=== PATIENT | male | born 1970 | race Caucasian/White ===

== ENCOUNTER 2017-12-08 05:20 | Inpatient (IN) | payer MEDICARE ==
[~2017-12-08] VITALS: Ht 175.3 cm; Wt 70.8 kg
[2017-12-08] VITALS (7 sets, daily range): BP systolic 113–145; BP diastolic 63–81
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
[2017-12-08] MEDS ORDERED: Cefepime HCl 1 GM in NS 55 ML IV SCH (05:45)
[2017-12-08] MEDS ORDERED: HYDROmorphone 1mg/ml Carpuject IVP ONE (05:45)
[2017-12-08] MEDS ORDERED: Vancomycin 1.5gm/D5W 250ml 250 ML IVPB ONE (05:45)
[2017-12-08 06:09] LABS: HEMATOCRIT 37.6 % (42.0-52.0); HEMOGLOBIN 12.7 G/DL (14.2-18.0); MEAN CORPUSCULAR VOLUME 100 FL (80-99); PLATELET COUNT 232 K/UL (150-450); RED BLOOD COUNT 3.78 M/UL (4.70-6.10); RED CELL DISTRIBUTION WIDTH 11.5 % (11.6-14.8)
[2017-12-08 06:14] LABS: APPEARANCE,URINE CLEAR; BILIRUBIN, URINE NEGATIVE (NEGATIVE); GLUCOSE, URINE (UA) NEGATIVE (NEGATIVE); KETONES,URINE 3+ (NEGATIVE); LEUKOCYTE ESTERASE ,URINE 1+ (NEGATIVE); NITRITE,URINE NEGATIVE (NEGATIVE); PH,URINE 8 (4.5-8.0); PROTEIN,URINE 2+ (NEGATIVE); UROBILINOGEN,URINE 1 MG/DL (0.0-1.0)
[2017-12-08 06:20] LABS: WHITE BLOOD COUNT 31.4 K/UL (4.8-10.8)
[2017-12-08 06:23] LABS: ANION GAP 7 mmol/L (5-15); BLOOD UREA NITROGEN 21 mg/dL (7-18); CALCIUM 8.4 MG/DL (8.5-10.1); CARBON DIOXIDE 27 MMOL/L (21-32); CHLORIDE 98 MMOL/L (98-107); CREATININE 1.1 MG/DL (0.55-1.30); POTASSIUM 4.6 MMOL/L (3.5-5.1); SODIUM 132 MMOL/L (136-145)
[2017-12-08 06:27] LABS: ALANINE AMINOTRANSFERASE 66 U/L (12-78); ALBUMIN 3.2 G/DL (3.4-5.0); ALBUMIN/GLOBULIN RATIO 0.9 (1.0-2.7); ALKALINE PHOSPHATASE 76 U/L (46-116); ASPARTATE AMINO TRANSFERASE 128 U/L (15-37); BILIRUBIN,TOTAL 0.7 MG/DL (0.2-1.0)
[2017-12-08 06:30] LABS: COLOR,URINE YELLOW
[2017-12-08] MEDS ORDERED: Acetaminophen 500mg (ES) tab ORAL ONE ×2 (07:00→07:15)
--- NOTE | 2017-12-08 09:35 | Diagnostic Imaging Report ---
Indication: pain. Left hand pain Findings: 3 views of the left hand were obtained. Normal alignment is demonstrated. No acute fractures, erosions, or periosteal reaction are seen. Fairly marked soft tissue swelling is present. Impression: No acute fracture.
[2017-12-08] MEDS ORDERED: Miralax 17gm pkt ORAL PRN (12:00)
[2017-12-08] MEDS ORDERED: Nitroglycerin Subl 0.4mg tab SL PRN (12:00)
[2017-12-08] MEDS ORDERED: Albuterol/Ipratropium 3ml neb HHN PRN (12:00)
[2017-12-08] MEDS ORDERED: Morphine Sulfate 4mg/ml Inj IVP PRN (12:00)
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
[2017-12-08] MEDS: Vancomycin 1250mg/D5W 250ml IVPB SCH (17:24)
[2017-12-08] MEDS: Morphine Sulfate 4mg/ml Inj IVP PRN ×2 (17:46→21:56)
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
--- NOTE | 2017-12-08 19:59 | Consultation ---
Consult Note Consult Note [id number] Panda Almaraz MD Dec 08, 2017 19:59
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
[2017-12-08] MEDS ORDERED: Cefepime HCl 2 GM in D5W 110 ML IV SCH (21:00)
[2017-12-08] MEDS: Depakote ER 500mg tab ORAL SCH (21:55)
[2017-12-08] MEDS: Heparin 5000 units/ml inj SUBQ SCH (21:59)
[2017-12-09] VITALS (12 sets, daily range): BP systolic 105–138; BP diastolic 53–85
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
[2017-12-09] MEDS ORDERED: Vancomycin 1 GM in D5W 275 ML IV SCH (00:30)
[2017-12-09] MEDS: Vancomycin 1250mg/D5W 250ml IVPB SCH ×2 (05:02→18:11)
[2017-12-09] MEDS: Clindamycin 150mg cap ORAL SCH ×4 (05:24→18:11)
[2017-12-09] MEDS: Piperacillin/Tazobactam 3.375 GM in NS 110 ML IVPB SCH ×3 (06:00→21:15)
[2017-12-09 07:00] LABS: HEMATOCRIT 38.5 % (42.0-52.0); HEMOGLOBIN 13.4 G/DL (14.2-18.0); MEAN CORPUSCULAR VOLUME 99 FL (80-99); PLATELET COUNT 256 K/UL (150-450); RED BLOOD COUNT 3.88 M/UL (4.70-6.10); RED CELL DISTRIBUTION WIDTH 11.7 % (11.6-14.8)
[2017-12-09 07:09] LABS: WHITE BLOOD COUNT 30.6 K/UL (4.8-10.8)
[2017-12-09 07:14] LABS: ALANINE AMINOTRANSFERASE 59 U/L (12-78); ALBUMIN 2.7 G/DL (3.4-5.0); ALBUMIN/GLOBULIN RATIO 0.6 (1.0-2.7); ALKALINE PHOSPHATASE 87 U/L (46-116); ANION GAP 11 mmol/L (5-15); ASPARTATE AMINO TRANSFERASE 65 U/L (15-37); BILIRUBIN,TOTAL 0.7 MG/DL (0.2-1.0); BLOOD UREA NITROGEN 16 mg/dL (7-18); CALCIUM 8.9 MG/DL (8.5-10.1); CARBON DIOXIDE 26 MMOL/L (21-32); CHLORIDE 101 MMOL/L (98-107); POTASSIUM 3.9 MMOL/L (3.5-5.1); SODIUM 137 MMOL/L (136-145)
[2017-12-09] MEDS: Morphine Sulfate 4mg/ml Inj IVP PRN ×2 (08:43→14:10)
[2017-12-09] MEDS: Heparin 5000 units/ml inj SUBQ SCH ×2 (08:49→21:00)
--- NOTE | 2017-12-09 09:50 | Infectious Diseases Prog Note ---
Assessment/Plan Assessment/Plan ASSESSMENT: The patient is a 47-year-old male with Fever Left hand cellulitis / Abscess , possible osteomyelitis Wnd Cx :GAStrp and strp # 2 Lt hand swollen , no sig improvment comparered to yesterday SP trauma Bacteremia : GPC Leukocytosis. History of hepatitis C , SP Rx PLAN: Continue the patient on vancomycin Zosyn and clindamycin day # 2 Monitor CBC. Monitor BMP. Monitor cultures (blood, wound). Surgical r following , pt need for I and D. ( DW PCP and left a message w office of Surg,for a call back and discuss the case ) MRI of the left hand to rule out osteomyelitis/evaluation of abscess. Subjective Allergies: Coded Allergies: No Known Allergies (Unverified , 12/08/17) Subjective leukocytosis Objective Vital Signs Last 24 Hour Vital Signs Date Time Temp Pulse Resp B/P (MAP) Pulse Ox O2 Delivery O2 Flow Rate FiO2 12/09/17 08:43 97.7 12/09/17 08:11 97.7 111 18 138/80 98 97.7 12/09/17 04:00 99.5 90 17 105/53 94 99.5 12/09/17 02:56 100.1 12/09/17 01:57 100.6 12/09/17 00:00 100.6 107 17 115/69 100.6 12/08/17 22:26 99.1 12/08/17 21:56 99.1 12/08/17 20:00 99.1 96 17 116/71 94 99.1 12/08/17 19:26 98 Room Air 21 12/08/17 17:46 97.6 12/08/17 15:59 97.6 89 21 113/63 100 97.6 12/08/17 13:45 97.5 12/08/17 12:00 97.5 100 21 145/81 96 97.5 12/08/17 10:12 99.3 97 13 113/75 95 Room Air 99.3 Height (Feet): 5 Height (Inches): 9.00 Weight (Pounds): 156 HEENT: mucous membranes moist Respiratory/Chest: no respiratory distress Cardiovascular: regular rhythm Abdomen: no mass Musculoskeletal: other - Lt hand swollen , no sig improvment comparered to yesterday Microbiology Date/Time Source Procedure Growth Status 12/08/17 05:45 Other(Specify in comment) Gram Stain - Final Resulted 12/08/17 05:45 Wound Culture - Preliminary Streptococcus Group A Strep Species, Alpha Hemolytic Resulted Laboratory Tests Test 12/09/17 05:40 White Blood Count 30.6 K/UL (4.8-10.8) *H Red Blood Count 3.88 M/UL (4.70-6.10) L Hemoglobin 13.4 G/DL (14.2-18.0) L Hematocrit 38.5 % (42.0-52.0) L Mean Corpuscular Volume 99 FL (80-99) Mean Corpuscular Hemoglobin 34.5 PG (27.0-31.0) H Mean Corpuscular Hemoglobin Concent 34.7 G/DL (32.0-36.0) Red Cell Distribution Width 11.7 % (11.6-14.8) Platelet Count 256 K/UL (150-450) Mean Platelet Volume 7.6 FL (6.5-10.1) Neutrophils (%) (Auto) % (45.0-75.0) Lymphocytes (%) (Auto) % (20.0-45.0) Monocytes (%) (Auto) % (1.0-10.0) Eosinophils (%) (Auto) % (0.0-3.0) Basophils (%) (Auto) % (0.0-2.0) Differential Total Cells Counted 100 Neutrophils % (Manual) 89 % (45-75) H Lymphocytes % (Manual) 2 % (20-45) L Monocytes % (Manual) 7 % (1-10) Eosinophils % (Manual) 0 % (0-3) Basophils % (Manual) 0 % (0-2) Band Neutrophils 2 % (0-8) Platelet Estimate Adequate Platelet Morphology Normal Red Blood Cell Morphology Normal Sodium Level 137 MMOL/L (136-145) Potassium Level 3.9 MMOL/L (3.5-5.1) Chloride Level 101 MMOL/L (98-107) Carbon Dioxide Level 26 MMOL/L (21-32) Anion Gap 11 mmol/L (5-15) Blood Urea Nitrogen 16 mg/dL (7-18) Creatinine 1.0 MG/DL (0.55-1.30) Estimat Glomerular Filtration Rate > 60 mL/min (>60) Glucose Level 95 MG/DL (74-106) Calcium Level 8.9 MG/DL (8.5-10.1) Total Bilirubin 0.7 MG/DL (0.2-1.0) Aspartate Amino Transf (AST/SGOT) 65 U/L (15-37) H Alanine Aminotransferase (ALT/SGPT) 59 U/L (12-78) Alkaline Phosphatase 87 U/L (46-116) Total Protein 7.0 G/DL (6.4-8.2) Albumin 2.7 G/DL (3.4-5.0) L Globulin 4.3 g/dL Albumin/Globulin Ratio 0.6 (1.0-2.7) L Current Medications Medications (Trade) Dose Ordered Sig/Cheryle Route PRN Reason Start Time Stop Time Status Last Admin Dose Admin Acetaminophen (Tylenol) 650 mg Q4H PRN ORAL fever>100.5 12/08/17 12:00 01/07/18 11:59 12/09/17 01:57 Albuterol/ Ipratropium (Albuterol/ Ipratropium) 3 ml Q4H PRN HHN Shortness of Breath 12/08/17 12:00 12/13/17 11:59 Clindamycin HCl (Cleocin) 600 mg EVERY 6 HOURS ORAL 12/09/17 00:00 12/16/17 00:00 12/09/17 05:24 Dextrose (Dextrose 50%) 25 ml STAT PRN IV Hypoglycemia 12/08/17 12:00 01/07/18 11:59 Dextrose (Dextrose 50%) 50 ml STAT PRN IV Hypoglycemia 12/08/17 12:00 01/07/18 11:59 Divalproex Sodium (Depakote ER) 500 mg BEDTIME ORAL 12/08/17 21:00 01/07/18 20:59 12/08/17 21:55 Heparin Sodium (Porcine) (Heparin 5000 units/ml) 5,000 units EVERY 12 HOURS SUBQ 12/08/17 21:00 01/07/18 20:59 12/09/17 08:49 Morphine Sulfate (Morphine Sulfate) 2 mg Q3H PRN IVP Moderate Pain (Pain Scale 4-6) 12/08/17 15:00 12/15/17 14:59 12/09/17 08:43 Nitroglycerin (Ntg) 0.4 mg Q5M PRN SL Prn Chest Pain 12/08/17 12:00 01/07/18 11:59 Ondansetron HCl (Zofran) 4 mg Q6H PRN IVP Nausea & Vomiting 12/08/17 12:00 01/07/18 11:59 Piperacillin Sod/ Tazobactam Sod 3.375 gm/Sodium Chloride 110 ml @ 27.5 mls/hr EVERY 8 HOURS IVPB 12/09/17 06:00 12/14/17 05:59 Polyethylene Glycol (Miralax) 17 gm DAILYPRN PRN ORAL Constipation 12/08/17 12:00 01/07/18 11:59 Temazepam (Restoril) 15 mg HSPRN PRN ORAL Insomnia 12/08/17 21:00 12/15/17 20:59 Vancomycin HCl/ Dextrose 250 ml @ 166.667 mls/hr Q12H IVPB 12/08/17 18:00 12/13/17 17:59 12/09/17 05:02 Panda Almaraz MD Dec 09, 2017 09:50
--- NOTE | 2017-12-09 12:42 | Diagnostic Imaging Report ---
APPROVED REPORT CPT Code: 95780 Present Symptoms Comments: R/O DVT BILATERAL: Imaging reveals a patent deep venous system bilaterally. There is no evidence of thrombus within the femoral, popliteal or tibial segments. The greater saphenous veins are also within normal limits. Doppler indicates normal spontaneous flow within these segments.
--- NOTE | 2017-12-09 14:32 | Diagnostic Imaging Report ---
Indication: Left hand cellulitis, wound, injury, positive for gram-negative cocci infection Technique: Axial T1, axial T2 fat-saturated, coronal T1, coronal STIR, sagittal T1, sagittal STIR, pre and post contrast axial and coronal T1 fat saturated images of the left hand Comparison: Reference made to plain radiograph dated 12/08/2017 Findings: A marker elliott the site of an ulcer which is dorsal to the distal shaft of the second metacarpal. There is extensive edema of the dorsum of the hand diffusely. There is extensive contrast enhancement. However, there are large areas of nonenhancement involving both the superficial fat as well as extending under and around the extensor digitorum tendons, appearing as fluid collections on the T2 and STIR images. This is centered at the site of ulceration and reaches the skin there, and the largest area of involvement is over the second and third metacarpals, but extends cephalad to the wrist, where this extends across the entirety of the posterior hand/wrist. More cephalad, it extends well into the second digit, terminating at the level of the first proximal interphalangeal joint. Although very complex in shape, most of this appears to be interconnected, although there are likely at least some discrete loculations. Due to the complex shape, measurements are difficult to provide. At its widest point, this measures approximately 7 cm transverse. Deep to the ulcer measures approximately 1.9 cm thick, and extends over a length of at least 13 cm. The bone marrow signal in all of the bones is normal. No abnormal joint effusion. No gross tendon signal abnormality is demonstrated. Impression: Findings consistent with complex abscess of the dorsum of the hand, as described above. There is also extensive surrounding soft tissue cellulitis. No evidence of osteomyelitis Findings discussed by phone with Dr. Ng at the time of interpretation
--- NOTE | 2017-12-09 18:44 | General Progress Note ---
Assessment/Plan Assessment/Plan bipolar d/o depression depakote 500mg qhs Subjective Date patient seen: Dec 09, 2017 Neurologic/Psychiatric: Reports: anxiety, emotional problems Allergies: Coded Allergies: No Known Allergies (Unverified , 12/08/17) Objective Last 24 Hour Vital Signs Date Time Temp Pulse Resp B/P (MAP) Pulse Ox O2 Delivery O2 Flow Rate FiO2 12/09/17 15:37 98.1 103 18 137/83 99 98.1 12/09/17 14:40 98.1 12/09/17 14:10 99.0 12/09/17 11:44 99.0 102 18 121/74 99 99.0 12/09/17 08:43 97.7 12/09/17 08:11 97.7 111 18 138/80 98 97.7 12/09/17 07:30 114 16 Room Air 21 12/09/17 07:30 98 Room Air 21 12/09/17 04:00 99.5 90 17 105/53 94 99.5 12/09/17 02:56 100.1 12/09/17 01:57 100.6 12/09/17 00:00 100.6 107 17 115/69 100.6 12/08/17 21:56 99.1 12/08/17 20:00 99.1 96 17 116/71 94 99.1 12/08/17 19:26 98 Room Air 21 Intake and Output 12/08/17 12/09/17 19:00 07:00 Intake Total 2580 ml 410 ml Balance 2580 ml 410 ml Intake Oral 480 ml 300 ml IV Total 2100 ml 110 ml # Voids 2 1 Laboratory Tests 12/09/17 05:40: White Blood Count 30.6*H, Red Blood Count 3.88L, Hemoglobin 13.4L, Hematocrit 38.5L, Mean Corpuscular Volume 99, Mean Corpuscular Hemoglobin 34.5H, Mean Corpuscular Hemoglobin Concent 34.7, Red Cell Distribution Width 11.7, Platelet Count 256, Mean Platelet Volume 7.6, Neutrophils (%) (Auto) , Lymphocytes (%) ( Auto) , Monocytes (%) (Auto) , Eosinophils (%) (Auto) , Basophils (%) (Auto) , Differential Total Cells Counted 100, Neutrophils % (Manual) 89H, Lymphocytes % (Manual) 2L, Monocytes % (Manual) 7, Eosinophils % (Manual) 0, Basophils % ( Manual) 0, Band Neutrophils 2, Platelet Estimate Adequate, Platelet Morphology Normal, Red Blood Cell Morphology Normal, Sodium Level 137, Potassium Level 3.9 , Chloride Level 101, Carbon Dioxide Level 26, Anion Gap 11, Blood Urea Nitrogen 16, Creatinine 1.0, Estimat Glomerular Filtration Rate > 60, Glucose Level 95, Calcium Level 8.9, Total Bilirubin 0.7, Aspartate Amino Transf (AST/ SGOT) 65H, Alanine Aminotransferase (ALT/SGPT) 59, Alkaline Phosphatase 87, Total Protein 7.0, Albumin 2.7L, Globulin 4.3, Albumin/Globulin Ratio 0.6L Height (Feet): 5 Height (Inches): 9.00 Weight (Pounds): 156 Neurologic: alert, oriented x 3, responsive Hema Michaels M.D. Dec 09, 2017 18:44
--- NOTE | 2017-12-09 19:55 | Pulmonology Progress Note ---
Assessment/Plan Problems: (1) Cellulitis (2) Abscess of left hand including fingers Assessment/Plan continue abx d/w ID check cbc in am symptomatic treatment Subjective ROS Limited/Unobtainable: No Constitutional: Reports: no symptoms HEENT: Repors: no symptoms Respiratory: Reports: no symptoms Allergies: Coded Allergies: No Known Allergies (Unverified , 12/08/17) Objective Last 24 Hour Vital Signs Date Time Temp Pulse Resp B/P (MAP) Pulse Ox O2 Delivery O2 Flow Rate FiO2 12/09/17 15:37 98.1 103 18 137/83 99 98.1 12/09/17 14:40 98.1 12/09/17 14:10 99.0 12/09/17 11:44 99.0 102 18 121/74 99 99.0 12/09/17 08:43 97.7 12/09/17 08:11 97.7 111 18 138/80 98 97.7 12/09/17 07:30 114 16 Room Air 21 12/09/17 07:30 98 Room Air 21 12/09/17 04:00 99.5 90 17 105/53 94 99.5 12/09/17 02:56 100.1 12/09/17 01:57 100.6 12/09/17 00:00 100.6 107 17 115/69 100.6 12/08/17 21:56 99.1 12/08/17 20:00 99.1 96 17 116/71 94 99.1 Intake and Output 12/08/17 12/09/17 19:00 07:00 Intake Total 2580 ml 410 ml Balance 2580 ml 410 ml Intake Oral 480 ml 300 ml IV Total 2100 ml 110 ml # Voids 2 1 General Appearance: WD/WN HEENT: normocephalic, atraumatic Respiratory/Chest: chest wall non-tender, lungs clear Cardiovascular: normal peripheral pulses, normal rate Abdomen: normal bowel sounds, soft, non tender Extremities: other - less swelling Microbiology Date/Time Source Procedure Growth Status 12/08/17 05:45 Blood Blood Culture - Preliminary Resulted 12/08/17 05:30 Blood Blood Culture - Preliminary Resulted 12/08/17 05:45 Other(Specify in comment) Gram Stain - Final Resulted 12/08/17 05:45 Wound Culture - Preliminary Streptococcus Group A Strep Species, Alpha Hemolytic Resulted Laboratory Tests 12/09/17 05:40: White Blood Count 30.6*H, Red Blood Count 3.88L, Hemoglobin 13.4L, Hematocrit 38.5L, Mean Corpuscular Volume 99, Mean Corpuscular Hemoglobin 34.5H, Mean Corpuscular Hemoglobin Concent 34.7, Red Cell Distribution Width 11.7, Platelet Count 256, Mean Platelet Volume 7.6, Neutrophils (%) (Auto) , Lymphocytes (%) ( Auto) , Monocytes (%) (Auto) , Eosinophils (%) (Auto) , Basophils (%) (Auto) , Differential Total Cells Counted 100, Neutrophils % (Manual) 89H, Lymphocytes % (Manual) 2L, Monocytes % (Manual) 7, Eosinophils % (Manual) 0, Basophils % ( Manual) 0, Band Neutrophils 2, Platelet Estimate Adequate, Platelet Morphology Normal, Red Blood Cell Morphology Normal, Sodium Level 137, Potassium Level 3.9 , Chloride Level 101, Carbon Dioxide Level 26, Anion Gap 11, Blood Urea Nitrogen 16, Creatinine 1.0, Estimat Glomerular Filtration Rate > 60, Glucose Level 95, Calcium Level 8.9, Total Bilirubin 0.7, Aspartate Amino Transf (AST/ SGOT) 65H, Alanine Aminotransferase (ALT/SGPT) 59, Alkaline Phosphatase 87, Total Protein 7.0, Albumin 2.7L, Globulin 4.3, Albumin/Globulin Ratio 0.6L Current Medications Medications (Trade) Dose Ordered Sig/Cheryle Route PRN Reason Start Time Stop Time Status Last Admin Dose Admin Acetaminophen (Tylenol) 650 mg Q4H PRN ORAL fever>100.5 12/08/17 12:00 01/07/18 11:59 12/09/17 01:57 Albuterol/ Ipratropium (Albuterol/ Ipratropium) 3 ml Q4H PRN HHN Shortness of Breath 12/08/17 12:00 12/13/17 11:59 Clindamycin HCl (Cleocin) 600 mg EVERY 6 HOURS ORAL 12/09/17 00:00 12/16/17 00:00 12/09/17 18:11 Dextrose (Dextrose 50%) 25 ml STAT PRN IV Hypoglycemia 12/08/17 12:00 01/07/18 11:59 Dextrose (Dextrose 50%) 50 ml STAT PRN IV Hypoglycemia 12/08/17 12:00 01/07/18 11:59 Divalproex Sodium (Depakote ER) 500 mg BEDTIME ORAL 12/08/17 21:00 01/07/18 20:59 12/08/17 21:55 Heparin Sodium (Porcine) (Heparin 5000 units/ml) 5,000 units EVERY 12 HOURS SUBQ 12/08/17 21:00 01/07/18 20:59 12/09/17 08:49 Morphine Sulfate (Morphine Sulfate) 2 mg Q3H PRN IVP Moderate Pain (Pain Scale 4-6) 12/08/17 15:00 12/15/17 14:59 12/09/17 14:10 Nitroglycerin (Ntg) 0.4 mg Q5M PRN SL Prn Chest Pain 12/08/17 12:00 01/07/18 11:59 Ondansetron HCl (Zofran) 4 mg Q6H PRN IVP Nausea & Vomiting 12/08/17 12:00 01/07/18 11:59 Piperacillin Sod/ Tazobactam Sod 3.375 gm/Sodium Chloride 110 ml @ 27.5 mls/hr EVERY 8 HOURS IVPB 12/09/17 06:00 12/14/17 05:59 12/09/17 14:08 Polyethylene Glycol (Miralax) 17 gm DAILYPRN PRN ORAL Constipation 12/08/17 12:00 01/07/18 11:59 Temazepam (Restoril) 15 mg HSPRN PRN ORAL Insomnia 12/08/17 21:00 12/15/17 20:59 Vancomycin HCl/ Dextrose 250 ml @ 166.667 mls/hr Q12H IVPB 12/08/17 18:00 12/13/17 17:59 12/09/17 18:11 Med Ng MD Dec 09, 2017 19:55
[2017-12-09] MEDS: Depakote ER 500mg tab ORAL SCH (21:00)
[2017-12-09] MEDS: D5 1/2NS 1,000 ML IV SCH (21:15)
[2017-12-09] MEDS ORDERED: Bacitracin Oint 15gm Tube TOPIC ONE (21:47)
[2017-12-09] MEDS ORDERED: Lidocaine 1% Plain 30 ml INJ ONE ×2 (21:47→22:43)
[2017-12-09] MEDS ORDERED: Bacitracin 50000 Units Vial ONE (21:48)
[2017-12-09] MEDS ORDERED: Bupivacaine 0.25% Inj 30ml INJ ONE ×2 (21:48→22:43)
[2017-12-09] MEDS ORDERED: Hydrogen Peroxide 473ml Bottle TOPIC ONE (21:48)
[2017-12-09] MEDS ORDERED: Propofol 200mg/20ml IV ONE (21:51)
[2017-12-09] MEDS ORDERED: [UNRECOGNIZED DRUG - OTHER] MISC ONE (21:53)
[2017-12-09] MEDS ORDERED: Ropivacaine 5mg/ml Vial 30ml INJ ONE (21:53)
[2017-12-09] MEDS ORDERED: NS Irrig 1000ml ONE (22:00)
[2017-12-09] MEDS ORDERED: LR 1000ml ONE ×2 (22:00)
[2017-12-09] MEDS ORDERED: Midazolam 2mg/2ml Inj ONE (22:00)
[2017-12-09] MEDS ORDERED: Sterile Water Irrig 1000ml IRRIG ONE (22:00)
--- NOTE | 2017-12-09 22:11 | Anethesia Preoperative Eval ---
Anesthesia Pre-op PMH/ROS General Date of Evaluation: Dec 09, 2017 Time of Evaluation: 10:11 Anesthesiologist: Laura ASA Score: ASA 3 - Emergency Mallampati Score Class I : Soft palate, uvula, fauces, pillars visible Class II: Soft palate, uvula, fauces visible Class III: Soft palate, base of uvula visible Class IV: Only hard plate visible Mallampati Classification: Class II Surgeon: Vince Diagnosis: L Hand Cellulitis Surgical Procedure: I and D L Hand Anesthesia History: none Family History: no anesthesia problems Allergies: Coded Allergies: No Known Allergies (Unverified , 12/08/17) Medications: see eMAR Past Medical History Cardiovascular: Reports: HTN Neurologic/Psychiatric: Reports: other - ADHD Hematology/Immune: Reports: anemia, other - 40k WBC Anesthesia Pre-op Phys. Exam Physician Exam Last Vital Signs Date Time Temp Pulse Resp B/P (MAP) Pulse Ox O2 Delivery O2 Flow Rate FiO2 12/09/17 20:00 98.6 16 16 126/73 97 98.6 12/09/17 07:30 Room Air 21 Constitutional: NAD Neurologic: CN 2-12 intact Cardiovascular: RRR Respiratory: CTA Gastrointestinal: S/NT/ND Airway Exam Mallampati Classification ASA 3E Mallampati Score: Class II MO: full ROM: full Teeth: missing, intact Anesthesia Pre-op A/P Labs Hematology Test 12/09/17 05:40 White Blood Count 30.6 K/UL (4.8-10.8) *H Red Blood Count 3.88 M/UL (4.70-6.10) L Hemoglobin 13.4 G/DL (14.2-18.0) L Hematocrit 38.5 % (42.0-52.0) L Mean Corpuscular Volume 99 FL (80-99) Mean Corpuscular Hemoglobin 34.5 PG (27.0-31.0) H Mean Corpuscular Hemoglobin Concent 34.7 G/DL (32.0-36.0) Red Cell Distribution Width 11.7 % (11.6-14.8) Platelet Count 256 K/UL (150-450) Mean Platelet Volume 7.6 FL (6.5-10.1) Neutrophils (%) (Auto) % (45.0-75.0) Lymphocytes (%) (Auto) % (20.0-45.0) Monocytes (%) (Auto) % (1.0-10.0) Eosinophils (%) (Auto) % (0.0-3.0) Basophils (%) (Auto) % (0.0-2.0) Differential Total Cells Counted 100 Neutrophils % (Manual) 89 % (45-75) H Lymphocytes % (Manual) 2 % (20-45) L Monocytes % (Manual) 7 % (1-10) Eosinophils % (Manual) 0 % (0-3) Basophils % (Manual) 0 % (0-2) Band Neutrophils 2 % (0-8) Platelet Estimate Adequate Platelet Morphology Normal Red Blood Cell Morphology Normal Chemistry Test 12/09/17 05:40 Sodium Level 137 MMOL/L (136-145) Potassium Level 3.9 MMOL/L (3.5-5.1) Chloride Level 101 MMOL/L (98-107) Carbon Dioxide Level 26 MMOL/L (21-32) Anion Gap 11 mmol/L (5-15) Blood Urea Nitrogen 16 mg/dL (7-18) Creatinine 1.0 MG/DL (0.55-1.30) Estimat Glomerular Filtration Rate > 60 mL/min (>60) Glucose Level 95 MG/DL (74-106) Calcium Level 8.9 MG/DL (8.5-10.1) Total Bilirubin 0.7 MG/DL (0.2-1.0) Aspartate Amino Transf (AST/SGOT) 65 U/L (15-37) H Alanine Aminotransferase (ALT/SGPT) 59 U/L (12-78) Alkaline Phosphatase 87 U/L (46-116) Total Protein 7.0 G/DL (6.4-8.2) Albumin 2.7 G/DL (3.4-5.0) L Globulin 4.3 g/dL Albumin/Globulin Ratio 0.6 (1.0-2.7) L Risk Assessment & Plan Assessment: ASA 3E Plan: Supraclavicular Block, Sedation Status Change Before Surgery: Patrice Weiss MD Dec 09, 2017 22:11
--- NOTE | 2017-12-09 22:12 | Immediate Post-Op Evaluation ---
Immediate Post-Op Evalulation Immediate Post-Op Evalulation Procedure: 1 and D L Hand Date of Evaluation: Dec 09, 2017 Time of Evaluation: 23:33 IV Fluids: 300 LR Blood Products: 0 Estimated Blood Loss: 10 Urinary Output: 0 Blood Pressure Systolic: 131 Blood Pressure Diastolic: 75 Pulse Rate: 111 Respiratory Rate: 16 O2 Sat by Pulse Oximetry: 100 Temperature (Fahrenheit): 99.5 Pain Score (1-10): 2 Nausea: No Vomiting: No Complications 0 Patient Status: awake, reacts, patent, none Hydration Status: adequate Drug: Zosyn 3.375 Grams IV Time Given: 22:34 Patrice Sanchez MD Dec 09, 2017 22:12
[2017-12-09] MEDS ORDERED: LR 1000ml 1,000 ML IVLG SCH (22:16)
--- NOTE | 2017-12-09 22:27 | General Progress Note ---
Progress Note Progress Note Plastic Surgery Progress Note Patient was seen this evening and results of MRI of the Left hand was reviewed. Patients notes persistant pain in the left hand. Has not improved and continues to be swollen. Has not worsened either. Review of the MRI results suggests a dorasal hand abscess. PE: Left hand has a larger area of skin necrosis. Murky fluid draining from the proximal doral blister and scab areas. Hand swelling and erythema unchanged from last night. A/P: Left hand cellulitis and abscess per MRI. Discussed with patient the results of the MRI and the surgical plan to explore and debride his left hand. Will also drain and wash out abscess. Will obtain cultures. He understands this is neceesary and that his cellulitis and hand infection will not improve unless the abscess is drained, the wounds debrided and washed out. Will make arrangements. JAY JACOBO M.D. Dec 09, 2017 22:27
--- NOTE | 2017-12-09 22:28 | Pre-Procedure Note/Attestation ---
Pre-Procedure Note/Attestation Complete Prior to Procedure Planned Procedure: left Procedure Narrative: Left hand debridement and Abscess incision and drainage. Indications for Procedure Pre-Operative Diagnosis: Left hand cellulitis and abscess Attestation I attest that I discussed the nature of the procedure; its benefits; risks and complications; and alternatives (and the risks and benefits of such alternatives ), prior to the procedure, with the patient (or the patient's legal dealer compliance representative). I attest that, if there was a reasonable possibility of needing a blood transfusion, the patient (or the patient's legal dealer compliance representative) was given the [facility] standardized written summary, pursuant to the [place] Blood Safety Act ([place] Health and Safety Code # 1645, as amended). I attest that I re-evaluated the patient just prior to the surgery and that there has been no change in the patient's H&P, except as documented below: JAY JACOBO M.D. Dec 09, 2017 22:28
[2017-12-09] MEDS ORDERED: HYDROcodone/Acetamin 7.5/325 tab ORAL PRN (22:30)
[2017-12-09] MEDS ORDERED: oxyCODONE HCL/Acetaminophen 5/325mg ORAL PRN (22:30)
[2017-12-09] MEDS ORDERED: Labetalol 5mg/ml 20ml vial IV PRN (22:30)
[2017-12-09] MEDS ORDERED: Ketorolac 30mg Inj IV PRN ×2 (22:30)
[2017-12-09] MEDS ORDERED: DiphenhydrAMINE 50mg/ml Inj IVP PRN (22:30)
[2017-12-09] MEDS ORDERED: fentaNYL 100 mcg/2 mL IV PRN (22:30)
[2017-12-09] MEDS ORDERED: Midazolam 2mg/2ml Inj IVP PRN (22:30)
[2017-12-09] MEDS ORDERED: Atropine Inj 1mg/10ml Syr IV PRN (22:30)
[2017-12-09] MEDS ORDERED: LORazepam Inj 2mg/ml 1ml IV PRN (22:30)
[2017-12-09] MEDS ORDERED: Norco 5mg/325mg tab ORAL PRN ×2 (22:30→23:30)
[2017-12-09] MEDS ORDERED: Bacitracin 50000 Units Vial IRRIG ONE (22:43)
[2017-12-09] MEDS ORDERED: Betadine 4oz Bottle TOPIC ONE (22:43)
--- NOTE | 2017-12-09 23:16 | Brief Operative Note ---
Immediate Post Operative Note Operative Note Pre-op Diagnosis: Left hand cellulitis and abscess Procedure: Left hand debridement, incision and drainage of abscess and washout Post-op Diagnosis: same as pre-op Post-op Diagnosis: same as pre-op Findings: consistent w/pre-op dx studies Surgeon: Jay Jacobo Bottle Packer: None Additional Surgeons: None Anesthesiologist: Laura Anesthesia: regional Specimen: yes - Abscess cultures Complications: none Condition: stable Fluids: see anesthesia record Estimated Blood Loss: minimal Drains: joni Packing: Wet to dry Implant(s) used?: No JAY JACOBO M.D. Dec 09, 2017 23:16
[2017-12-10] VITALS (7 sets, daily range): BP systolic 112–142; BP diastolic 68–78
[2017-12-10] MEDS: Clindamycin 150mg cap ORAL SCH ×4 (00:59→17:54)
[2017-12-10] MEDS: Vancomycin 1250mg/D5W 250ml IVPB SCH ×3 (05:25→20:46)
[2017-12-10 05:57] LABS: HEMATOCRIT 36.2 % (42.0-52.0); HEMOGLOBIN 12.8 G/DL (14.2-18.0); MEAN CORPUSCULAR VOLUME 99 FL (80-99); PLATELET COUNT 246 K/UL (150-450); RED BLOOD COUNT 3.64 M/UL (4.70-6.10); RED CELL DISTRIBUTION WIDTH 12.1 % (11.6-14.8)
[2017-12-10 06:11] LABS: ALANINE AMINOTRANSFERASE 54 U/L (12-78); ALBUMIN 2.4 G/DL (3.4-5.0); ALBUMIN/GLOBULIN RATIO 0.5 (1.0-2.7); ALKALINE PHOSPHATASE 82 U/L (46-116); ANION GAP 9 mmol/L (5-15); ASPARTATE AMINO TRANSFERASE 43 U/L (15-37); BILIRUBIN,TOTAL 0.5 MG/DL (0.2-1.0); BLOOD UREA NITROGEN 15 mg/dL (7-18); CALCIUM 8.7 MG/DL (8.5-10.1); CARBON DIOXIDE 26 MMOL/L (21-32); CHLORIDE 102 MMOL/L (98-107); CREATININE 0.9 MG/DL (0.55-1.30); POTASSIUM 4.2 MMOL/L (3.5-5.1); SODIUM 137 MMOL/L (136-145)
[2017-12-10 06:12] LABS: WHITE BLOOD COUNT 24.8 K/UL (4.8-10.8)
[2017-12-10 06:20] LABS: PHOSPHORUS 3.3 MG/DL (2.5-4.9)
[2017-12-10] MEDS: D5 1/2NS 1,000 ML IV SCH (06:45)
[2017-12-10] MEDS: Piperacillin/Tazobactam 3.375 GM in NS 110 ML IVPB SCH ×3 (07:06→22:13)
--- NOTE | 2017-12-10 08:40 | 48 Hour Post Anesthesia Eval ---
Post Anesthesia Evaluation Procedure: 1 and D L Hand Date of Evaluation: Dec 10, 2017 Time of Evaluation: 08:20 Blood Pressure Systolic: 122 0: 68 Pulse Rate: 85 Respiratory Rate: 20 Temperature (Fahrenheit): 98.1 O2 Sat by Pulse Oximetry: 95 Airway: patent Nausea: No Vomiting: No Pain Intensity: 0 Hydration Status: adequate Cardiopulmonary Status: at baseline Mental Status/LOC: patient returned to baseline Post-Anesthesia Complications: 0 Follow-up care needed: N/A - further care as per primary team LOUIE KAHN M.D. Dec 10, 2017 08:40
[2017-12-10] MEDS: Docusate 100mg cap ORAL SCH ×2 (08:46→17:53)
[2017-12-10] MEDS: Heparin 5000 units/ml inj SUBQ SCH ×2 (08:49→20:38)
[2017-12-10] MEDS: Morphine Sulfate 4mg/ml Inj IVP PRN ×3 (10:14→18:36)
--- NOTE | 2017-12-10 15:41 | General Progress Note ---
Assessment/Plan Status: stable, progressing Assessment/Plan bipolar d/o depression depakote 500mg qhs Subjective Date patient seen: Dec 10, 2017 Neurologic/Psychiatric: Reports: anxiety, depressed, emotional problems Allergies: Coded Allergies: No Known Allergies (Unverified , 12/08/17) Subjective the pt is doing well no behavioral issues Objective Last 24 Hour Vital Signs Date Time Temp Pulse Resp B/P (MAP) Pulse Ox O2 Delivery O2 Flow Rate FiO2 12/10/17 14:55 99.7 12/10/17 14:25 99.7 12/10/17 12:00 99.7 88 18 128/74 97 99.7 12/10/17 10:44 98.1 12/10/17 10:14 98.1 12/10/17 08:44 Room Air 12/10/17 08:40 208.6 85 20 95 12/10/17 08:00 98.1 85 20 122/68 95 98.1 12/10/17 04:00 97.7 65 17 112/75 97 97.7 12/10/17 00:00 97.7 101 18 115/75 97.7 12/09/17 23:50 98.6 104 16 123/69 98 Nasal Cannula 3.0 98.6 12/09/17 23:40 100 21 121/85 98 Nasal Cannula 3.0 12/09/17 23:32 98 17 121/77 98 Nasal Cannula 3.0 12/09/17 23:27 109 15 121/77 96 Simple Mask 6.0 12/09/17 23:22 99.5 110 32 131/75 96 Simple Mask 6.0 99.5 12/09/17 23:22 211.1 111 16 100 12/09/17 23:06 91 16 12/09/17 20:00 Nasal Cannula 2.0 28 12/09/17 20:00 98.6 16 16 126/73 97 98.6 12/09/17 19:30 96 Nasal Cannula 2.0 28 12/09/17 19:30 106 16 Nasal Cannula 2.0 28 Intake and Output 12/09/17 12/10/17 19:00 07:00 Intake Total 830 ml 776.667 ml Output Total 500 ml 700 ml Balance 330 ml 76.667 ml Intake Oral 830 ml IV Total 776.667 ml Output Urine Total 500 ml 700 ml # Voids 1 Laboratory Tests 12/10/17 05:00: White Blood Count 24.8*H, Red Blood Count 3.64L, Hemoglobin 12.8L, Hematocrit 36.2L, Mean Corpuscular Volume 99, Mean Corpuscular Hemoglobin 35.3H, Mean Corpuscular Hemoglobin Concent 35.5, Red Cell Distribution Width 12.1, Platelet Count 246, Mean Platelet Volume 7.4, Neutrophils (%) (Auto) , Lymphocytes (%) ( Auto) , Monocytes (%) (Auto) , Eosinophils (%) (Auto) , Basophils (%) (Auto) , Differential Total Cells Counted 100, Neutrophils % (Manual) 95H, Lymphocytes % (Manual) 2L, Monocytes % (Manual) 3, Eosinophils % (Manual) 0, Basophils % ( Manual) 0, Band Neutrophils 0, Platelet Estimate Adequate, Platelet Morphology Normal, Red Blood Cell Morphology Normal, Prothrombin Time 10.0, Prothromb Time International Ratio 1.0, Activated Partial Thromboplast Time 34H, Sodium Level 137, Potassium Level 4.2, Chloride Level 102, Carbon Dioxide Level 26, Anion Gap 9, Blood Urea Nitrogen 15, Creatinine 0.9, Estimat Glomerular Filtration Rate > 60, Glucose Level 146H, Calcium Level 8.7, Phosphorus Level 3.3, Magnesium Level 2.0, Total Bilirubin 0.5, Aspartate Amino Transf (AST/SGOT) 43H , Alanine Aminotransferase (ALT/SGPT) 54, Alkaline Phosphatase 82, Total Protein 6.8, Albumin 2.4L, Globulin 4.4, Albumin/Globulin Ratio 0.5L, Vancomycin Level Trough 6.3 Height (Feet): 5 Height (Inches): 9.00 Weight (Pounds): 156 General Appearance: no apparent distress, alert Neurologic: oriented x 3, responsive, depressed affect Hema Michaels M.D. Dec 10, 2017 15:41
--- NOTE | 2017-12-10 17:57 | Infectious Diseases Prog Note ---
Assessment/Plan Assessment/Plan ASSESSMENT: The patient is a 47-year-old male with Fever, .SP Left hand cellulitis / Abscess , possible osteomyelitis Wnd Cx :GAStrp 12/09 Left hand debridement, incision and drainage of abscess and washout 12/09 MRI of the left hand : abscess. SP trauma Bacteremia : GAStrp Leukocytosis, SP History of hepatitis C , SP Rx PLAN: Continue the patient on vancomycin Zosyn and clindamycin day # 3 ( may stop Zosyn soon ) Monitor CBC Monitor BMP Monitor cultures (blood, wound) Surgical fup contact Isolation Subjective Constitutional: Denies: no symptoms, fever, chills, fatigue, anorexia, drenching sweats, other Allergies: Coded Allergies: No Known Allergies (Unverified , 12/08/17) Subjective leukocytosis Objective Vital Signs Last 24 Hour Vital Signs Date Time Temp Pulse Resp B/P (MAP) Pulse Ox O2 Delivery O2 Flow Rate FiO2 12/10/17 15:57 97.9 78 18 142/76 97 97.9 12/10/17 14:55 99.7 12/10/17 14:25 99.7 12/10/17 12:00 99.7 88 18 128/74 97 99.7 12/10/17 10:44 98.1 12/10/17 10:14 98.1 12/10/17 08:44 Room Air 12/10/17 08:40 208.6 85 20 95 12/10/17 08:00 98.1 85 20 122/68 95 98.1 12/10/17 04:00 97.7 65 17 112/75 97 97.7 12/10/17 00:00 97.7 101 18 115/75 97.7 12/09/17 23:50 98.6 104 16 123/69 98 Nasal Cannula 3.0 98.6 12/09/17 23:40 100 21 121/85 98 Nasal Cannula 3.0 12/09/17 23:32 98 17 121/77 98 Nasal Cannula 3.0 12/09/17 23:27 109 15 121/77 96 Simple Mask 6.0 12/09/17 23:22 99.5 110 32 131/75 96 Simple Mask 6.0 99.5 12/09/17 23:22 211.1 111 16 100 12/09/17 23:06 91 16 12/09/17 20:00 Nasal Cannula 2.0 28 12/09/17 20:00 98.6 16 16 126/73 97 98.6 12/09/17 19:30 96 Nasal Cannula 2.0 28 12/09/17 19:30 106 16 Nasal Cannula 2.0 28 Height (Feet): 5 Height (Inches): 9.00 Weight (Pounds): 156 HEENT: atraumatic Respiratory/Chest: no respiratory distress Cardiovascular: regular rhythm Abdomen: no organomegaly Microbiology Date/Time Source Procedure Growth Status 12/08/17 05:45 Blood Blood Culture - Preliminary Streptococcus Pyogenes Grp A Resulted 12/08/17 05:30 Blood Blood Culture - Preliminary Streptococcus Pyogenes Grp A Resulted 12/08/17 05:45 Other(Specify in comment) Gram Stain - Final Resulted 12/08/17 05:45 Wound Culture - Preliminary Streptococcus Group A Resulted 12/09/17 11:36 Nasal Nares Received Laboratory Tests Test 12/10/17 05:00 White Blood Count 24.8 K/UL (4.8-10.8) *H Red Blood Count 3.64 M/UL (4.70-6.10) L Hemoglobin 12.8 G/DL (14.2-18.0) L Hematocrit 36.2 % (42.0-52.0) L Mean Corpuscular Volume 99 FL (80-99) Mean Corpuscular Hemoglobin 35.3 PG (27.0-31.0) H Mean Corpuscular Hemoglobin Concent 35.5 G/DL (32.0-36.0) Red Cell Distribution Width 12.1 % (11.6-14.8) Platelet Count 246 K/UL (150-450) Mean Platelet Volume 7.4 FL (6.5-10.1) Neutrophils (%) (Auto) % (45.0-75.0) Lymphocytes (%) (Auto) % (20.0-45.0) Monocytes (%) (Auto) % (1.0-10.0) Eosinophils (%) (Auto) % (0.0-3.0) Basophils (%) (Auto) % (0.0-2.0) Differential Total Cells Counted 100 Neutrophils % (Manual) 95 % (45-75) H Lymphocytes % (Manual) 2 % (20-45) L Monocytes % (Manual) 3 % (1-10) Eosinophils % (Manual) 0 % (0-3) Basophils % (Manual) 0 % (0-2) Band Neutrophils 0 % (0-8) Platelet Estimate Adequate Platelet Morphology Normal Red Blood Cell Morphology Normal Prothrombin Time 10.0 SEC (9.30-11.50) Prothromb Time International Ratio 1.0 (0.9-1.1) Activated Partial Thromboplast Time 34 SEC (23-33) H Sodium Level 137 MMOL/L (136-145) Potassium Level 4.2 MMOL/L (3.5-5.1) Chloride Level 102 MMOL/L (98-107) Carbon Dioxide Level 26 MMOL/L (21-32) Anion Gap 9 mmol/L (5-15) Blood Urea Nitrogen 15 mg/dL (7-18) Creatinine 0.9 MG/DL (0.55-1.30) Estimat Glomerular Filtration Rate > 60 mL/min (>60) Glucose Level 146 MG/DL (74-106) H Calcium Level 8.7 MG/DL (8.5-10.1) Phosphorus Level 3.3 MG/DL (2.5-4.9) Magnesium Level 2.0 MG/DL (1.8-2.4) Total Bilirubin 0.5 MG/DL (0.2-1.0) Aspartate Amino Transf (AST/SGOT) 43 U/L (15-37) H Alanine Aminotransferase (ALT/SGPT) 54 U/L (12-78) Alkaline Phosphatase 82 U/L (46-116) Total Protein 6.8 G/DL (6.4-8.2) Albumin 2.4 G/DL (3.4-5.0) L Globulin 4.4 g/dL Albumin/Globulin Ratio 0.5 (1.0-2.7) L Vancomycin Level Trough 6.3 ug/mL (5.0-12.0) Current Medications Medications (Trade) Dose Ordered Sig/Cheryle Route PRN Reason Start Time Stop Time Status Last Admin Dose Admin Acetaminophen (Tylenol) 650 mg Q4H PRN ORAL fever>100.5 12/08/17 12:00 01/07/18 11:59 12/09/17 01:57 Acetaminophen/ Hydrocodone Bitart ([place] 5/325) 1 tab Q4H PRN ORAL Moderate Pain (Pain Scale 4-6) 12/09/17 23:30 12/16/17 23:29 Albuterol/ Ipratropium (Albuterol/ Ipratropium) 3 ml Q4H PRN HHN Shortness of Breath 12/08/17 12:00 12/13/17 11:59 Clindamycin HCl (Cleocin) 600 mg EVERY 6 HOURS ORAL 12/09/17 00:00 12/16/17 00:00 12/10/17 12:49 Dextrose (Dextrose 50%) 25 ml STAT PRN IV Hypoglycemia 12/08/17 12:00 01/07/18 11:59 Dextrose (Dextrose 50%) 50 ml STAT PRN IV Hypoglycemia 12/08/17 12:00 01/07/18 11:59 Divalproex Sodium (Depakote ER) 500 mg BEDTIME ORAL 12/08/17 21:00 01/07/18 20:59 12/08/17 21:55 Docusate Sodium (Colace) 100 mg TWICE A DAY ORAL 12/10/17 09:00 01/09/18 08:59 12/10/17 08:46 Heparin Sodium (Porcine) (Heparin 5000 units/ml) 5,000 units EVERY 12 HOURS SUBQ 12/08/17 21:00 01/07/18 20:59 12/10/17 08:49 Morphine Sulfate (Morphine Sulfate) 2 mg Q3H PRN IVP Moderate Pain (Pain Scale 4-6) 12/08/17 15:00 12/15/17 14:59 12/10/17 10:14 Morphine Sulfate (Morphine Sulfate) 2 mg Q4H PRN IVP SEVERE PAIN 7-10 12/09/17 23:45 12/16/17 23:44 12/10/17 14:25 Nicotine (Nicoderm) 1 patch Q24H TDERMAL 12/10/17 15:30 01/09/18 15:29 12/10/17 15:45 Nitroglycerin (Ntg) 0.4 mg Q5M PRN SL Prn Chest Pain 12/08/17 12:00 01/07/18 11:59 Ondansetron HCl (Zofran) 4 mg Q6H PRN IVP Nausea & Vomiting 12/08/17 12:00 01/07/18 11:59 Piperacillin Sod/ Tazobactam Sod 3.375 gm/Sodium Chloride 110 ml @ 27.5 mls/hr EVERY 8 HOURS IVPB 12/09/17 06:00 12/14/17 05:59 12/10/17 16:55 Polyethylene Glycol (Miralax) 17 gm DAILYPRN PRN ORAL Constipation 12/08/17 12:00 01/07/18 11:59 Risperidone (RisperDAL) 2 mg BEDTIME ORAL 12/10/17 21:00 01/09/18 20:59 Temazepam (Restoril) 15 mg HSPRN PRN ORAL Insomnia 12/08/17 21:00 12/15/17 20:59 Vancomycin HCl/ Dextrose 250 ml @ 166.667 mls/hr Q8HR IVPB 12/10/17 14:00 12/15/17 13:59 12/10/17 13:51 Panda Almaraz MD Dec 10, 2017 17:57
--- NOTE | 2017-12-10 19:17 | Pulmonology Progress Note ---
Assessment/Plan Problems: (1) Cellulitis (2) Abscess of left hand including fingers Assessment/Plan s/p surgical debridement continue abx d/w ID check cbc in am symptomatic treatment Subjective ROS Limited/Unobtainable: No Constitutional: Reports: no symptoms HEENT: Repors: no symptoms Allergies: Coded Allergies: No Known Allergies (Unverified , 12/08/17) Objective Last 24 Hour Vital Signs Date Time Temp Pulse Resp B/P (MAP) Pulse Ox O2 Delivery O2 Flow Rate FiO2 12/10/17 19:01 98.2 102 20 138/78 97 Room Air 98.2 12/10/17 18:36 97.9 12/10/17 16:00 Room Air 12/10/17 15:57 97.9 78 18 142/76 97 97.9 12/10/17 14:55 99.7 12/10/17 14:25 99.7 12/10/17 12:00 99.7 88 18 128/74 97 99.7 12/10/17 10:44 98.1 12/10/17 10:14 98.1 12/10/17 08:44 Room Air 12/10/17 08:40 208.6 85 20 95 12/10/17 08:00 98.1 85 20 122/68 95 98.1 12/10/17 04:00 97.7 65 17 112/75 97 97.7 12/10/17 00:00 97.7 101 18 115/75 97.7 12/09/17 23:50 98.6 104 16 123/69 98 Nasal Cannula 3.0 98.6 12/09/17 23:40 100 21 121/85 98 Nasal Cannula 3.0 12/09/17 23:32 98 17 121/77 98 Nasal Cannula 3.0 12/09/17 23:27 109 15 121/77 96 Simple Mask 6.0 12/09/17 23:22 99.5 110 32 131/75 96 Simple Mask 6.0 99.5 12/09/17 23:22 211.1 111 16 100 12/09/17 23:06 91 16 12/09/17 20:00 Nasal Cannula 2.0 28 12/09/17 20:00 98.6 16 16 126/73 97 98.6 12/09/17 19:30 96 Nasal Cannula 2.0 28 12/09/17 19:30 106 16 Nasal Cannula 2.0 28 Intake and Output 12/09/17 12/10/17 19:00 07:00 Intake Total 830 ml 776.667 ml Output Total 500 ml 700 ml Balance 330 ml 76.667 ml Intake Oral 830 ml IV Total 776.667 ml Output Urine Total 500 ml 700 ml # Voids 1 General Appearance: WD/WN HEENT: normocephalic, atraumatic Respiratory/Chest: chest wall non-tender, lungs clear Cardiovascular: normal peripheral pulses, normal rate Abdomen: normal bowel sounds, non distended Genitourinary: normal external genitalia Extremities: other - left hand clean dressing Microbiology Date/Time Source Procedure Growth Status 12/08/17 05:45 Blood Blood Culture - Preliminary Streptococcus Pyogenes Grp A Resulted 12/08/17 05:30 Blood Blood Culture - Preliminary Streptococcus Pyogenes Grp A Resulted 12/08/17 05:45 Other(Specify in comment) Gram Stain - Final Resulted 12/08/17 05:45 Wound Culture - Preliminary Streptococcus Group A Resulted 12/09/17 11:36 Nasal Nares Received Laboratory Tests 12/10/17 05:00: White Blood Count 24.8*H, Red Blood Count 3.64L, Hemoglobin 12.8L, Hematocrit 36.2L, Mean Corpuscular Volume 99, Mean Corpuscular Hemoglobin 35.3H, Mean Corpuscular Hemoglobin Concent 35.5, Red Cell Distribution Width 12.1, Platelet Count 246, Mean Platelet Volume 7.4, Neutrophils (%) (Auto) , Lymphocytes (%) ( Auto) , Monocytes (%) (Auto) , Eosinophils (%) (Auto) , Basophils (%) (Auto) , Differential Total Cells Counted 100, Neutrophils % (Manual) 95H, Lymphocytes % (Manual) 2L, Monocytes % (Manual) 3, Eosinophils % (Manual) 0, Basophils % ( Manual) 0, Band Neutrophils 0, Platelet Estimate Adequate, Platelet Morphology Normal, Red Blood Cell Morphology Normal, Prothrombin Time 10.0, Prothromb Time International Ratio 1.0, Activated Partial Thromboplast Time 34H, Sodium Level 137, Potassium Level 4.2, Chloride Level 102, Carbon Dioxide Level 26, Anion Gap 9, Blood Urea Nitrogen 15, Creatinine 0.9, Estimat Glomerular Filtration Rate > 60, Glucose Level 146H, Calcium Level 8.7, Phosphorus Level 3.3, Magnesium Level 2.0, Total Bilirubin 0.5, Aspartate Amino Transf (AST/SGOT) 43H , Alanine Aminotransferase (ALT/SGPT) 54, Alkaline Phosphatase 82, Total Protein 6.8, Albumin 2.4L, Globulin 4.4, Albumin/Globulin Ratio 0.5L, Vancomycin Level Trough 6.3 Current Medications Medications (Trade) Dose Ordered Sig/Cheryle Route PRN Reason Start Time Stop Time Status Last Admin Dose Admin Acetaminophen (Tylenol) 650 mg Q4H PRN ORAL fever>100.5 12/08/17 12:00 01/07/18 11:59 12/09/17 01:57 Acetaminophen/ Hydrocodone Bitart ([place] 5/325) 1 tab Q4H PRN ORAL Moderate Pain (Pain Scale 4-6) 12/09/17 23:30 12/16/17 23:29 Albuterol/ Ipratropium (Albuterol/ Ipratropium) 3 ml Q4H PRN HHN Shortness of Breath 12/08/17 12:00 12/13/17 11:59 Clindamycin HCl (Cleocin) 600 mg EVERY 6 HOURS ORAL 12/09/17 00:00 12/16/17 00:00 12/10/17 17:54 Dextrose (Dextrose 50%) 25 ml STAT PRN IV Hypoglycemia 12/08/17 12:00 01/07/18 11:59 Dextrose (Dextrose 50%) 50 ml STAT PRN IV Hypoglycemia 12/08/17 12:00 01/07/18 11:59 Divalproex Sodium (Depakote ER) 500 mg BEDTIME ORAL 12/08/17 21:00 01/07/18 20:59 12/08/17 21:55 Docusate Sodium (Colace) 100 mg TWICE A DAY ORAL 12/10/17 09:00 01/09/18 08:59 12/10/17 17:53 Heparin Sodium (Porcine) (Heparin 5000 units/ml) 5,000 units EVERY 12 HOURS SUBQ 12/08/17 21:00 01/07/18 20:59 12/10/17 08:49 Morphine Sulfate (Morphine Sulfate) 2 mg Q3H PRN IVP Moderate Pain (Pain Scale 4-6) 12/08/17 15:00 12/15/17 14:59 12/10/17 10:14 Morphine Sulfate (Morphine Sulfate) 2 mg Q4H PRN IVP SEVERE PAIN 7-10 12/09/17 23:45 12/16/17 23:44 12/10/17 18:36 Nicotine (Nicoderm) 1 patch Q24H TDERMAL 12/10/17 15:30 01/09/18 15:29 12/10/17 15:45 Nitroglycerin (Ntg) 0.4 mg Q5M PRN SL Prn Chest Pain 12/08/17 12:00 01/07/18 11:59 Ondansetron HCl (Zofran) 4 mg Q6H PRN IVP Nausea & Vomiting 12/08/17 12:00 01/07/18 11:59 Piperacillin Sod/ Tazobactam Sod 3.375 gm/Sodium Chloride 110 ml @ 27.5 mls/hr EVERY 8 HOURS IVPB 12/09/17 06:00 12/14/17 05:59 12/10/17 16:55 Polyethylene Glycol (Miralax) 17 gm DAILYPRN PRN ORAL Constipation 12/08/17 12:00 01/07/18 11:59 Risperidone (RisperDAL) 2 mg BEDTIME ORAL 12/10/17 21:00 01/09/18 20:59 Temazepam (Restoril) 15 mg HSPRN PRN ORAL Insomnia 12/08/17 21:00 12/15/17 20:59 Vancomycin HCl/ Dextrose 250 ml @ 166.667 mls/hr Q8HR IVPB 12/10/17 14:00 12/15/17 13:59 12/10/17 13:51 Med Ng MD Dec 10, 2017 19:17
[2017-12-10] MEDS: Depakote ER 500mg tab ORAL SCH (20:36)
--- NOTE | 2017-12-10 21:30 | General Progress Note ---
Progress Note Progress Note Patient doing better. Left forearm cellulitis and edema improving. WBC decreased to 24. Pain controlled on medications. PE: Left hand with scant drainage. No purulence. Wet to dry dressing in place. Winston in place. Continue local wound care. Continue IV Abx per ID. Left hand abscess cultures pending. Once the wound is bus cleaner, plan on taking to OR for washout, integra placement, and wound vac placement. JAY JACOBO M.D. Dec 10, 2017 21:30
[2017-12-10] MEDS: oxyCODONE HCL/Acetaminophen 5/325mg ORAL PRN (22:15)
[2017-12-11] MEDS: Clindamycin 150mg cap ORAL SCH ×5 (00:40→23:45)
[2017-12-11] MEDS: Morphine Sulfate 4mg/ml Inj IVP PRN ×4 (00:40→23:44)
[2017-12-11 04:53] VITALS: BP_SYST 111; BP_SYST 96; BP_DIAS 48; BP_DIAS 64
[2017-12-11] MEDS: Piperacillin/Tazobactam 3.375 GM in NS 110 ML IVPB SCH ×2 (05:47→14:11)
[2017-12-11] MEDS: oxyCODONE HCL/Acetaminophen 5/325mg ORAL PRN ×2 (05:56→14:54)
[2017-12-11 07:07] LABS: ALANINE AMINOTRANSFERASE 70 U/L (12-78); ALBUMIN 2.4 G/DL (3.4-5.0); ALBUMIN/GLOBULIN RATIO 0.6 (1.0-2.7); ALKALINE PHOSPHATASE 71 U/L (46-116); ANION GAP 7 mmol/L (5-15); ASPARTATE AMINO TRANSFERASE 64 U/L (15-37); BILIRUBIN,TOTAL 0.4 MG/DL (0.2-1.0); BLOOD UREA NITROGEN 19 mg/dL (7-18); CALCIUM 8.3 MG/DL (8.5-10.1); CARBON DIOXIDE 28 MMOL/L (21-32); CHLORIDE 106 MMOL/L (98-107); PHOSPHORUS 4.1 MG/DL (2.5-4.9); POTASSIUM 3.6 MMOL/L (3.5-5.1); SODIUM 140 MMOL/L (136-145)
[2017-12-11 07:14] LABS: BASOPHILS % (AUTO) 0.5 % (0.0-2.0); EOSINOPHILS % (AUTO) 0.3 % (0.0-3.0); HEMATOCRIT 35.4 % (42.0-52.0); HEMOGLOBIN 12.5 G/DL (14.2-18.0); LYMPHOCYTES % (AUTO) 18.4 % (20.0-45.0); MEAN CORPUSCULAR VOLUME 99 FL (80-99); MONOCYTES % (AUTO) 8.4 % (1.0-10.0); NEUTROPHILS % (AUTO) 72.5 % (45.0-75.0); PLATELET COUNT 269 K/UL (150-450); RED BLOOD COUNT 3.57 M/UL (4.70-6.10); RED CELL DISTRIBUTION WIDTH 12.2 % (11.6-14.8); WHITE BLOOD COUNT 13.9 K/UL (4.8-10.8)
[2017-12-11 08:00] VITALS: BP 127/81
[2017-12-11] MEDS: Docusate 100mg cap ORAL SCH ×2 (08:52→17:37)
[2017-12-11] MEDS: Heparin 5000 units/ml inj SUBQ SCH ×2 (08:56→21:06)
[2017-12-11] MEDS: Vancomycin 1.5 GM/D5W 250ML IVPB SCH ×2 (09:58→18:37)
[2017-12-11 11:55] VITALS: BP 126/71
[2017-12-11] MEDS ORDERED: D5 1/2NS 1000ml IV ONE (12:24)
[2017-12-11] MEDS ORDERED: NS 275ml ONE (12:25)
--- NOTE | 2017-12-11 15:27 | Pulmonology Progress Note ---
Assessment/Plan Problems: (1) Cellulitis (2) Abscess of left hand including fingers (3) Bacteremia Assessment/Plan wbc decreasing s/p surgical debridement continue abx d/w ID check cbc in am symptomatic treatment dc to rehab facility when WBC is normal and cleared by surgeon Subjective ROS Limited/Unobtainable: No Interval Events: less pain Allergies: Coded Allergies: No Known Allergies (Unverified , 12/08/17) Objective Last 24 Hour Vital Signs Date Time Temp Pulse Resp B/P (MAP) Pulse Ox O2 Delivery O2 Flow Rate FiO2 12/11/17 14:54 97.9 12/11/17 14:41 97.9 12/11/17 14:11 97.9 12/11/17 11:55 97.9 76 18 126/71 98 97.9 12/11/17 11:55 Room Air 12/11/17 09:57 97.2 12/11/17 08:24 Room Air 12/11/17 08:23 98 Room Air 21 12/11/17 08:22 88 20 Room Air 12/11/17 08:00 97.2 78 18 127/81 98 97.2 12/11/17 08:00 Room Air 12/11/17 06:55 98.1 12/11/17 04:53 98.1 66 20 111/64 97 Room Air 98.1 12/11/17 04:00 Room Air 12/11/17 00:00 Room Air 12/10/17 23:58 97.5 83 20 120/69 96 Room Air 97.5 12/10/17 20:03 101 18 Nasal Cannula 2.0 28 12/10/17 20:03 97 Nasal Cannula 2.0 28 12/10/17 20:03 Nasal Cannula 2.0 28 12/10/17 20:00 Room Air 12/10/17 19:06 98.2 12/10/17 19:01 98.2 102 20 138/78 97 Room Air 98.2 12/10/17 18:36 97.9 12/10/17 16:00 Room Air 12/10/17 15:57 97.9 78 18 142/76 97 97.9 Intake and Output 12/10/17 12/11/17 19:00 07:00 Intake Total 948.333 ml 387.500 ml Balance 948.333 ml 387.500 ml Intake Oral 450 ml IV Total 498.333 ml 387.500 ml # Voids 3 2 General Appearance: WD/WN HEENT: normocephalic, atraumatic, PERRL Respiratory/Chest: chest wall non-tender, lungs clear Cardiovascular: normal peripheral pulses, normal rate Abdomen: normal bowel sounds, soft, non tender Genitourinary: normal external genitalia Extremities: no clubbing Neurologic/Psychiatric: lokie engineer II-XII grossly normal Lymphatic: no neck adenopathy Microbiology Date/Time Source Procedure Growth Status 12/09/17 11:36 Nasal Nares MRSA Culture - Final NO METHICILLIN RESISTANT STAPH AUREUS... Complete 12/09/17 11:39 Rectum VRE Culture - Final NO VANCOMYCIN RESISTANT ENTEROCOCCUS ... Complete Laboratory Tests 12/11/17 05:30: White Blood Count 13.9H, Red Blood Count 3.57L, Hemoglobin 12.5L, Hematocrit 35.4L, Mean Corpuscular Volume 99, Mean Corpuscular Hemoglobin 34.9H, Mean Corpuscular Hemoglobin Concent 35.3, Red Cell Distribution Width 12.2, Platelet Count 269, Mean Platelet Volume 7.2, Neutrophils (%) (Auto) 72.5, Lymphocytes (% ) (Auto) 18.4L, Monocytes (%) (Auto) 8.4, Eosinophils (%) (Auto) 0.3, Basophils (%) (Auto) 0.5, Sodium Level 140, Potassium Level 3.6, Chloride Level 106, Carbon Dioxide Level 28, Anion Gap 7, Blood Urea Nitrogen 19H, Creatinine 1.0, Estimat Glomerular Filtration Rate > 60, Glucose Level 97, Calcium Level 8.3L, Phosphorus Level 4.1, Magnesium Level 1.8, Total Bilirubin 0.4, Aspartate Amino Transf (AST/SGOT) 64H, Alanine Aminotransferase (ALT/SGPT) 70, Alkaline Phosphatase 71, Total Protein 6.2L, Albumin 2.4L, Globulin 3.8, Albumin/ Globulin Ratio 0.6L, Vancomycin Level Trough 12.4H Current Medications Medications (Trade) Dose Ordered Sig/Cheryle Route PRN Reason Start Time Stop Time Status Last Admin Dose Admin Acetaminophen (Tylenol) 650 mg Q4H PRN ORAL fever>100.5 12/08/17 12:00 01/07/18 11:59 12/09/17 01:57 Albuterol/ Ipratropium (Albuterol/ Ipratropium) 3 ml Q4H PRN HHN Shortness of Breath 12/08/17 12:00 12/13/17 11:59 Clindamycin HCl (Cleocin) 600 mg EVERY 6 HOURS ORAL 12/09/17 00:00 12/16/17 00:00 12/11/17 12:11 Dextrose (Dextrose 50%) 25 ml STAT PRN IV Hypoglycemia 12/08/17 12:00 01/07/18 11:59 Dextrose (Dextrose 50%) 50 ml STAT PRN IV Hypoglycemia 12/08/17 12:00 01/07/18 11:59 Diazepam (Valium) 2 mg Q4H PRN ORAL For Anxiety 12/11/17 11:00 12/18/17 10:59 12/11/17 12:11 Divalproex Sodium (Depakote ER) 500 mg BEDTIME ORAL 12/08/17 21:00 01/07/18 20:59 12/10/17 20:36 Docusate Sodium (Colace) 100 mg TWICE A DAY ORAL 12/10/17 09:00 01/09/18 08:59 12/11/17 08:52 Heparin Sodium (Porcine) (Heparin 5000 units/ml) 5,000 units EVERY 12 HOURS SUBQ 12/08/17 21:00 01/07/18 20:59 12/11/17 08:56 Morphine Sulfate (Morphine Sulfate) 2 mg Q3H PRN IVP Breakthrough Pain 12/10/17 21:30 12/17/17 21:29 12/11/17 14:11 Nicotine (Nicoderm) 1 patch Q24H TDERMAL 12/10/17 15:30 01/09/18 15:29 12/11/17 14:53 Nitroglycerin (Ntg) 0.4 mg Q5M PRN SL Prn Chest Pain 12/08/17 12:00 01/07/18 11:59 Ondansetron HCl (Zofran) 4 mg Q6H PRN IVP Nausea & Vomiting 12/08/17 12:00 01/07/18 11:59 Oxycodone/ Acetaminophen ([place] 5-325) 1 tab Q4H PRN ORAL Moderate Pain (Pain Scale 4-6) 12/10/17 21:30 12/17/17 21:29 12/11/17 14:54 Piperacillin Sod/ Tazobactam Sod 3.375 gm/Sodium Chloride 110 ml @ 27.5 mls/hr EVERY 8 HOURS IVPB 12/09/17 06:00 12/14/17 05:59 12/11/17 14:11 Polyethylene Glycol (Miralax) 17 gm DAILYPRN PRN ORAL Constipation 12/08/17 12:00 01/07/18 11:59 Risperidone (RisperDAL) 2 mg BEDTIME ORAL 12/10/17 21:00 01/09/18 20:59 12/10/17 20:36 Temazepam (Restoril) 15 mg HSPRN PRN ORAL Insomnia 12/08/17 21:00 12/15/17 20:59 12/11/17 01:50 Vancomycin HCl (Vanco rx to dose) 1 ea DAILY PRN MISC PER RX PROTOCOL 12/11/17 07:15 01/10/18 07:14 Vancomycin HCl/ Dextrose 250 ml @ 125 mls/hr Q8HR@0200,1000,1800 IVPB 12/11/17 10:00 12/16/17 09:59 12/11/17 09:58 Med Ng MD Dec 11, 2017 15:27
--- NOTE | 2017-12-11 15:53 | Physician Query ---
--------- THIS DOCUMENT IS A PERMANENT PART OF THE MEDICAL RECORD --------- PLEASE COMPLETE THE FORM BEFORE SIGNING Dear JAY Gonzalez Date: 12/11/17 [employer] Name: Abelardo Plata [employer] Phone No: [phone] Exercise your independent professional judgment when responding to query. Questions asked do not imply particular answer is desired or expected. We greatly appreciate your clarification on this issue. Because there is documentation in the medical record of "Debridement", clarification is needed. Please document whether this is "Excisional" or "Nonexcisional" Debridement of the wound, infection or burn. [] Excisional: The removal of necrotic, devitalized tissue or slough by means of cutting away of tissue (the use of scissors, scalpel or curette are common). [] Nonexcisional: The removal of necrotic, devitalized tissue or slough by means of flushing, brushing or washing (irrigating). Documentation should also include the "depth" of tissue removed, []skin, [] fascia, []muscle [] bone. Please document the appropriate type of Debridement on the Progress Notes or on this form as an addendum to the patient's record. (Sign and date all documents). Dr. JAY JACOBO Date/Time MTDD
[2017-12-11 15:56] VITALS: BP 134/92
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
[2017-12-11 20:05] VITALS: BP 137/79
[2017-12-11] MEDS: Depakote ER 500mg tab ORAL SCH (21:03)
--- NOTE | 2017-12-11 22:53 | General Progress Note ---
Assessment/Plan Assessment/Plan bipolar d/o depression depakote 500mg qhs risperdal 2mg qhs Subjective Date patient seen: Dec 11, 2017 Neurologic/Psychiatric: Reports: anxiety, depressed, emotional problems Allergies: Coded Allergies: No Known Allergies (Unverified , 12/08/17) Subjective the pt is doing well no behavioral issues Objective Last 24 Hour Vital Signs Date Time Temp Pulse Resp B/P (MAP) Pulse Ox O2 Delivery O2 Flow Rate FiO2 12/11/17 20:05 97.5 78 20 137/79 97 Room Air 97.5 12/11/17 19:30 Room Air 21 12/11/17 19:30 96 Room Air 21 12/11/17 19:30 80 20 Room Air 21 12/11/17 16:00 Room Air 12/11/17 15:56 96.4 80 18 134/92 98 96.4 12/11/17 15:53 96.4 12/11/17 14:54 97.9 12/11/17 14:41 97.9 12/11/17 14:11 97.9 12/11/17 11:55 97.9 76 18 126/71 98 97.9 12/11/17 11:55 Room Air 12/11/17 09:57 97.2 12/11/17 08:24 Room Air 12/11/17 08:23 98 Room Air 21 12/11/17 08:22 88 20 Room Air 12/11/17 08:00 97.2 78 18 127/81 98 97.2 12/11/17 08:00 Room Air 12/11/17 04:53 98.1 66 20 111/64 97 Room Air 98.1 12/11/17 04:00 Room Air 12/11/17 00:00 Room Air 12/10/17 23:58 97.5 83 20 120/69 96 Room Air 97.5 Intake and Output 12/10/17 12/11/17 19:00 07:00 Intake Total 948.333 ml 387.500 ml Balance 948.333 ml 387.500 ml Intake Oral 450 ml IV Total 498.333 ml 387.500 ml # Voids 3 2 Laboratory Tests 12/11/17 05:30: White Blood Count 13.9H, Red Blood Count 3.57L, Hemoglobin 12.5L, Hematocrit 35.4L, Mean Corpuscular Volume 99, Mean Corpuscular Hemoglobin 34.9H, Mean Corpuscular Hemoglobin Concent 35.3, Red Cell Distribution Width 12.2, Platelet Count 269, Mean Platelet Volume 7.2, Neutrophils (%) (Auto) 72.5, Lymphocytes (% ) (Auto) 18.4L, Monocytes (%) (Auto) 8.4, Eosinophils (%) (Auto) 0.3, Basophils (%) (Auto) 0.5, Sodium Level 140, Potassium Level 3.6, Chloride Level 106, Carbon Dioxide Level 28, Anion Gap 7, Blood Urea Nitrogen 19H, Creatinine 1.0, Estimat Glomerular Filtration Rate > 60, Glucose Level 97, Calcium Level 8.3L, Phosphorus Level 4.1, Magnesium Level 1.8, Total Bilirubin 0.4, Aspartate Amino Transf (AST/SGOT) 64H, Alanine Aminotransferase (ALT/SGPT) 70, Alkaline Phosphatase 71, Total Protein 6.2L, Albumin 2.4L, Globulin 3.8, Albumin/ Globulin Ratio 0.6L, Vancomycin Level Trough 12.4H Height (Feet): 5 Height (Inches): 9.00 Weight (Pounds): 156 General Appearance: no apparent distress, alert Neurologic: oriented x 3, responsive, depressed affect Hema Michaels M.D. Dec 11, 2017 22:53
[2017-12-11] MEDS: Ampicillin 2 GM in NS 110 ML IVPB SCH (23:44)
[2017-12-12] MEDS ORDERED: AMPICILLIN IVPB SCH ×2
[2017-12-12] MEDS ORDERED: D5W IVPB SCH ×2
[2017-12-12 00:01] VITALS: BP 132/82
[2017-12-12 04:30] VITALS: BP 139/75
[2017-12-12] MEDS: Clindamycin 150mg cap ORAL SCH ×3 (05:30→18:10)
[2017-12-12] MEDS: oxyCODONE HCL/Acetaminophen 5/325mg ORAL PRN ×2 (05:42→16:32)
[2017-12-12] MEDS: Ampicillin 2 GM in NS 110 ML IVPB SCH ×3 (06:14→18:00)
[2017-12-12 07:59] VITALS: BP 152/91
[2017-12-12] MEDS: Docusate 100mg cap ORAL SCH ×2 (08:43→18:00)
[2017-12-12 08:45] LABS: BASOPHILS % (AUTO) 1.8 % (0.0-2.0); EOSINOPHILS % (AUTO) 0.8 % (0.0-3.0); HEMATOCRIT 42.6 % (42.0-52.0); HEMOGLOBIN 14.2 G/DL (14.2-18.0); LYMPHOCYTES % (AUTO) 16.1 % (20.0-45.0); MEAN CORPUSCULAR VOLUME 100 FL (80-99); MONOCYTES % (AUTO) 9.8 % (1.0-10.0); NEUTROPHILS % (AUTO) 71.6 % (45.0-75.0); PLATELET COUNT 355 K/UL (150-450); RED BLOOD COUNT 4.26 M/UL (4.70-6.10); RED CELL DISTRIBUTION WIDTH 12.5 % (11.6-14.8); WHITE BLOOD COUNT 12.8 K/UL (4.8-10.8)
[2017-12-12] MEDS: Morphine Sulfate 4mg/ml Inj IVP PRN ×2 (08:46→12:54)
[2017-12-12] MEDS: Heparin 5000 units/ml inj SUBQ SCH (08:50)
[2017-12-12 09:13] LABS: ALANINE AMINOTRANSFERASE 86 U/L (12-78); ALBUMIN 2.9 G/DL (3.4-5.0); ALBUMIN/GLOBULIN RATIO 0.6 (1.0-2.7); ALKALINE PHOSPHATASE 76 U/L (46-116); ANION GAP 7 mmol/L (5-15); ASPARTATE AMINO TRANSFERASE 63 U/L (15-37); BILIRUBIN,TOTAL 0.5 MG/DL (0.2-1.0); BLOOD UREA NITROGEN 16 mg/dL (7-18); CARBON DIOXIDE 30 MMOL/L (21-32); CHLORIDE 99 MMOL/L (98-107); PHOSPHORUS 3.1 MG/DL (2.5-4.9); POTASSIUM 3.7 MMOL/L (3.5-5.1); SODIUM 136 MMOL/L (136-145)
[2017-12-12] MEDS ORDERED: Tubing IV Secondary IV ONE (10:24)
[2017-12-12] MEDS ORDERED: ROCEPHIN250 MG IM (11:02)
[2017-12-12] MEDS ORDERED: NICODERM 21MG/241 EA TDERMAL (11:02)
[2017-12-12] MEDS ORDERED: CLEOCIN150 MG ORAL (11:02)
[2017-12-12] MEDS ORDERED: PERCOCET1 TAB ORAL (11:02)
[2017-12-12] MEDS ORDERED: RESTORIL15 MG ORAL (11:02)
[2017-12-12] MEDS ORDERED: RISPERDAL2 MG ORAL (11:02)
[2017-12-12] MEDS ORDERED: MORPHINE SU4 MG/1 ML IVP (11:02)
[2017-12-12 11:31] VITALS: BP 136/79
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
--- NOTE | 2017-12-12 15:32 | Pulmonology Progress Note ---
Assessment/Plan Problems: (1) Cellulitis (2) Abscess of left hand including fingers (3) Bacteremia Assessment/Plan wbc decreasing s/p surgical debridement continue abx d/w ID check cbc in am symptomatic treatment dc to rehab facility when WBC is normal and cleared by surgeon Subjective ROS Limited/Unobtainable: No Constitutional: Reports: no symptoms HEENT: Repors: no symptoms Respiratory: Reports: no symptoms Allergies: Coded Allergies: No Known Allergies (Unverified , 12/08/17) Objective Last 24 Hour Vital Signs Date Time Temp Pulse Resp B/P (MAP) Pulse Ox O2 Delivery O2 Flow Rate FiO2 12/12/17 13:24 96.6 12/12/17 12:54 96.6 12/12/17 11:31 96.6 92 18 136/79 98 96.6 12/12/17 08:46 97.0 12/12/17 07:59 97.0 80 18 152/91 99 97.0 12/12/17 06:41 97.0 12/12/17 05:42 97.0 12/12/17 04:30 97.0 20 139/75 98 97.0 12/12/17 00:01 97.2 79 21 132/82 98 97.2 12/11/17 20:05 97.5 78 20 137/79 97 Room Air 97.5 12/11/17 19:30 Room Air 21 12/11/17 19:30 96 Room Air 21 12/11/17 19:30 80 20 Room Air 21 12/11/17 16:00 Room Air 12/11/17 15:56 96.4 80 18 134/92 98 96.4 Intake and Output 12/11/17 12/12/17 19:00 07:00 Intake Total 924.5 ml 780 ml Balance 924.5 ml 780 ml Intake Oral 482 ml 420 ml IV Total 442.5 ml 360 ml # Voids 3 2 General Appearance: WD/WN HEENT: normocephalic, atraumatic Respiratory/Chest: chest wall non-tender, normal breath sounds Cardiovascular: normal peripheral pulses, normal rate Abdomen: normal bowel sounds, soft, non tender Genitourinary: normal external genitalia Extremities: no clubbing Skin: no lesions 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 Microbiology Date/Time Source Procedure Growth Status 12/09/17 20:48 Hand Left Gram Stain - Final Resulted 12/09/17 20:48 Aerobic Culture - Final Streptococcus Group A Resulted 12/09/17 20:48 Hand Left Anaerobic Culture Pending Resulted Laboratory Tests 12/12/17 08:10: White Blood Count 12.8H, Red Blood Count 4.26L, Hemoglobin 14.2, Hematocrit 42.6 , Mean Corpuscular Volume 100H, Mean Corpuscular Hemoglobin 33.5H, Mean Corpuscular Hemoglobin Concent 33.5, Red Cell Distribution Width 12.5, Platelet Count 355, Mean Platelet Volume 6.6, Neutrophils (%) (Auto) 71.6, Lymphocytes (% ) (Auto) 16.1L, Monocytes (%) (Auto) 9.8, Eosinophils (%) (Auto) 0.8, Basophils (%) (Auto) 1.8, Sodium Level 136, Potassium Level 3.7, Chloride Level 99, Carbon Dioxide Level 30, Anion Gap 7, Blood Urea Nitrogen 16, Creatinine 1.0, Estimat Glomerular Filtration Rate > 60, Glucose Level 96, Calcium Level 9.0, Phosphorus Level 3.1, Magnesium Level 1.8, Total Bilirubin 0.5, Aspartate Amino Transf (AST/SGOT) 63H, Alanine Aminotransferase (ALT/SGPT) 86H, Alkaline Phosphatase 76, Total Protein 7.6, Albumin 2.9L, Globulin 4.7, Albumin/Globulin Ratio 0.6L Current Medications Medications (Trade) Dose Ordered Sig/Cheryle Route PRN Reason Start Time Stop Time Status Last Admin Dose Admin Acetaminophen (Tylenol) 650 mg Q4H PRN ORAL fever>100.5 12/08/17 12:00 01/07/18 11:59 12/09/17 01:57 Albuterol/ Ipratropium (Albuterol/ Ipratropium) 3 ml Q4H PRN HHN Shortness of Breath 12/08/17 12:00 12/13/17 11:59 Ampicillin 2 gm/ Sodium Chloride 110 ml @ 220 mls/hr EVERY 6 HOURS IVPB 12/12/17 00:00 12/19/17 00:00 12/12/17 11:29 Clindamycin HCl (Cleocin) 600 mg EVERY 6 HOURS ORAL 12/09/17 00:00 12/16/17 00:00 12/12/17 11:26 Dextrose (Dextrose 50%) 25 ml STAT PRN IV Hypoglycemia 12/08/17 12:00 01/07/18 11:59 Dextrose (Dextrose 50%) 50 ml STAT PRN IV Hypoglycemia 12/08/17 12:00 01/07/18 11:59 Diazepam (Valium) 2 mg Q4H PRN ORAL For Anxiety 12/11/17 11:00 12/18/17 10:59 12/12/17 11:24 Divalproex Sodium (Depakote ER) 500 mg BEDTIME ORAL 12/08/17 21:00 01/07/18 20:59 12/11/17 21:03 Docusate Sodium (Colace) 100 mg TWICE A DAY ORAL 12/10/17 09:00 01/09/18 08:59 12/12/17 08:43 Heparin Sodium (Porcine) (Heparin 5000 units/ml) 5,000 units EVERY 12 HOURS SUBQ 12/08/17 21:00 01/07/18 20:59 12/12/17 08:50 Morphine Sulfate (Morphine Sulfate) 2 mg Q3H PRN IVP Breakthrough Pain 12/10/17 21:30 12/17/17 21:29 12/12/17 12:54 Nicotine (Nicoderm) 1 patch Q24H TDERMAL 12/10/17 15:30 01/09/18 15:29 12/12/17 15:15 Nitroglycerin (Ntg) 0.4 mg Q5M PRN SL Prn Chest Pain 12/08/17 12:00 01/07/18 11:59 Ondansetron HCl (Zofran) 4 mg Q6H PRN IVP Nausea & Vomiting 12/08/17 12:00 01/07/18 11:59 Oxycodone/ Acetaminophen (Percocet 5-325) 1 tab Q4H PRN ORAL Moderate Pain (Pain Scale 4-6) 12/10/17 21:30 12/17/17 21:29 12/12/17 05:42 Polyethylene Glycol (Miralax) 17 gm DAILYPRN PRN ORAL Constipation 12/08/17 12:00 01/07/18 11:59 Risperidone (RisperDAL) 2 mg BEDTIME ORAL 12/10/17 21:00 01/09/18 20:59 12/11/17 21:03 Temazepam (Restoril) 15 mg HSPRN PRN ORAL Insomnia 12/08/17 21:00 12/15/17 20:59 12/11/17 01:50 Med Ng MD Dec 12, 2017 15:32
[2017-12-12 15:35] VITALS: BP 120/77
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
--- NOTE | 2017-12-19 10:30 | Operative Note - Dictated ---
DATE OF OPERATION: 12/09/2017 PREOPERATIVE DIAGNOSIS: Left hand abscess. POSTOPERATIVE DIAGNOSIS: Left hand abscess. OPERATIVE SURGEON: Dane Clarke M.D. OPERATIVE PROCEDURE: Left hand incision and drainage of an abscess, wound debridement and washout with placement of multiple Hollins drains. ANESTHESIA: General with MAC sedation. COMPLICATIONS: None. FINDINGS DURING THIS PROCEDURE: Dorsal hand abscess that extends across the entire dorsum of the hand just above the tendon sheaths and extends proximally to the wrist area, necrotic tissue especially over the second metacarpal area up to the IP joint and the PIP joint of the left index finger along the dorsum of the . OPERATIVE PROCEDURE NOTE IN DETAIL: The patient was brought into the operating room and prepped and draped in the usual sterile fashion after IV sedation was administered. Local regional block was also performed by the anesthesiologist for left upper extremity block. A #10 blade scalpel was then used to sharply debride and excise the tissue directly over the first metacarpal bone where it was macerated and gangrenous. After sharply debriding in the subcutaneous tissue and the macerated abscess pocket, all the necrotic tissue was debrided from directly over the first metacarpal bone and the abscess cavity was removed. It was between the subcutaneous space just above the tendon sheaths. It extended over the metacarpal bones of the fourth and fifth metacarpal areas and extended proximally to the approximately to the distal wrist. Abscess cavity was washed out using copious amounts of normal saline with triple antibiotics. Counterincisions were made to allow adequate drainage of all the abscess with huge abscess pockets with the finger in extension, also extended to the first web space of the hand and the dorsal palm. All these areas were washed out and debrided, then washed out again with normal saline and triple antibiotics. Counterincisions were made. A 1 inch Hollins drains were placed through that and tied to itself in a loop. The tail was then packed with wet-to -dry dressings and wrapped in a Kerlix dressing. The patient tolerated the procedure well without any problems. The patient was awakened in the operating room and transferred to the postanesthesia care unit in good stable condition. Dane Clarke M.D. DR: AMELIA JOB#: [id number] CC: SAMAN
== END 2017-12-12 18:55 | DRG 982 ==
LOC: EDBD 05:20 → EMR 05:39 → 4W 06:21 → EDBEDREQ 07:20
PROC: 0KBD0ZZ Excision of Left Hand Muscle, Open Approach (ICD-10-PCS; principal; 2017-12-09 22:00)
PROC: 0J9 Subcutaneous Tissue and Fascia, Drainage (ICD-10-PCS; principal; 2017-12-09 22:00)
DX: L03.114 Cellulitis of left upper limb (principal); L02.512 Cutaneous abscess of left hand; R78.81 Bacteremia; I96 Gangrene, not elsewhere classified; F31.9 Bipolar disorder, unspecified; R00.0 Tachycardia, unspecified; F32.9 Major depressive disorder, single episode, unspecified; F12.90 Cannabis use, unspecified, uncomplicated
CPT/HCPCS: 36415; 80053; 80202; 80307; 81003; 83605; 83735; 84100; 85007; 85025; 85610; 85730; 87040; 87070; 87075; 87081; 87181; 87205; 93970; 94003; 94150; 94664; 94760; 99285; A4246; A9585; J2250; J2405